=== PATIENT | male | born 1970 | race Asian ===

== ENCOUNTER 2016-05-31 20:06 | Emergency (ER) | payer OTHER ==
[2016-05-31] MEDS ORDERED: DOXYCYCLINE HYCLATE 100 MG TABLET ONE (21:17)
--- NOTE | 2016-06-01 07:13 | RAD ---
CHEST 2 VIEWS HISTORY: Cough x1 week. Frontal and lateral chest radiographs dated 05/31/2016. COMPARISON: None. FINDINGS: FOCAL AIRSPACE OPACITY: No gross airspace consolidation. PLEURAL EFFUSION: None. CARDIOMEDIASTINAL SILHOUETTE: Nonenlarged. PNEUMOTHORAX: None identified. OSSEOUS STRUCTURES: Minor thoracic disc degeneration. IMPRESSION: No acute cardiopulmonary process noted.
== END 2016-05-31 21:29 | disposition home or self-care (01) ==
LOC: ED 20:06
DX: R05 Cough (principal); I10 Essential (primary) hypertension; E11.9 Type 2 diabetes mellitus without complications; Z79.4 Long term (current) use of insulin
CPT/HCPCS: 71020; 99283 ×2; A9270